=== PATIENT | male | born 1980 | race Hispanic/Latino ===

== ENCOUNTER 2019-02-28 11:19 | Emergency (ER) | payer SELFPAY ==
[2019-02-28 11:57] LABS: BASOPHILS % (AUTO) 0.7 % (0.0-5.0); HEMATOCRIT 44.3 % (42-54); LYMPHOCYTES % (AUTO) 21.6 % (21.0-51.0); MEAN CORPUSCULAR HEMOGLOBIN 30.6 pg (27.0-33.0); MEAN CORPUSCULAR HGB CONC 34.1 g/dL (32.0-36.0); MEAN CORPUSCULAR VOLUME 89.8 fL (79-99); MONOCYTES % (AUTO) 16.4 % (3.0-13.0); NEUTROPHILS % (AUTO) 59.3 % (40.0-77.0); PLATELET COUNT (AUTO) 237 K/uL (130-400); RED BLOOD CELL COUNT(AUTO) 4.93 MIL/uL (4.50-6.20); RED CELL DISTRIBUTION WIDTH 13.1 % (11.0-15.5); WHITE BLOOD COUNT (AUTO) 9.2 K/uL (4.8-10.8)
[2019-02-28 12:03] LABS: APPEARANCE,URINE Clear (CLEAR); BILIRUBIN,URINE Negative (NEGATIVE); COLOR,URINE Yellow (YELLOW); GLUCOSE, URINE (UA) Negative (NEGATIVE); KETONES,URINE Negative (NEGATIVE); LEUKOCYTE ESTERASE ,URINE Trace (NEGATIVE); NITRATE,URINE Negative (NEGATIVE); OCCULT BLOOD,URINE Negative (NEGATIVE); PROTEIN,URINE Negative (NEGATIVE)
[2019-02-28 12:05] LABS: CREATININE 0.8 mg/dL (0.5-1.5)
[2019-02-28 12:09] LABS: ALBUMIN 3.1 g/dL (3.5-5.0); BILIRUBIN,TOTAL 0.2 mg/dL (0.2-1.0); TOTAL PROTEIN, SERUM 6.9 g/dL (6.0-8.3)
[2019-02-28 12:14] LABS: RBC,URINE 0-1 /HPF (0-1)
[2019-02-28 12:15] LABS: BACTERIA,URINE Few /HPF (None Seen); SQUAMOUS EPITHELIAL CELL,UR 0-2 /HPF (0-2)
[2019-02-28 13:36] LABS: OCCULT BLOOD STOOL SINGLE ONLY POSITIVE (NEGATIVE)
== END 2019-02-28 14:23 | disposition home or self-care (01) ==
LOC: EDH 11:19
DX: K52.9 Noninfective gastroenteritis and colitis, unspecified (principal); F41.9 Anxiety disorder, unspecified; F32.9 Major depressive disorder, single episode, unspecified; Z72.0 Tobacco use
CPT/HCPCS: 36415; 74176; 80053; 81001; 82270; 83690; 85025; 87046; 87324

== ENCOUNTER 2022-10-09 13:10 | Emergency (ER) | payer OTHER ==
[~2022-10-09] VITALS: Ht 180.3 cm; Wt 106.6 kg
[2022-10-09 13:23] VITALS: BP 113/79
[2022-10-09 13:59] LABS: BASOPHILS % (AUTO) 0.4 % (0.0-5.0); EOSINOPHILS % (AUTO) 0.4 % (0.0-8.0); HEMATOCRIT 41.6 % (42-54); LYMPHOCYTES % (AUTO) 8.2 % (21.0-51.0); MEAN CORPUSCULAR HEMOGLOBIN 29.9 pg (27.0-33.0); MEAN CORPUSCULAR HGB CONC 34.1 g/dL (32.0-36.0); MEAN CORPUSCULAR VOLUME 87.6 fL (79-99); MONOCYTES % (AUTO) 12.8 % (3.0-13.0); NEUTROPHILS % (AUTO) 77.5 % (40.0-77.0); PLATELET COUNT (AUTO) 259 K/uL (130-400); RED BLOOD CELL COUNT(AUTO) 4.75 MIL/uL (4.50-6.20); RED CELL DISTRIBUTION WIDTH 12.4 % (11.0-15.5); WHITE BLOOD COUNT (AUTO) 18.2 K/uL (4.8-10.8)
[2022-10-09] MEDS ORDERED: IBUPROFEN 800 MG TAB PO ONE (14:00)
[2022-10-09 14:06] LABS: POTASSIUM 3.3 mmol/L (3.5-5.1)
[2022-10-09] MEDS ORDERED: CEPH500B PO (14:08)
[2022-10-09 14:10] LABS: ALBUMIN 3.6 g/dL (3.5-5.0); TOTAL PROTEIN, SERUM 7.1 g/dL (6.0-8.3)
[2022-10-09] MEDS ORDERED: POTASSIUM BICARB/CIT AC 25 MEQ TABLET.EFF PO ONE (14:30)
== END 2022-10-09 15:51 | disposition home or self-care (01) ==
LOC: EDH 13:10
DX: L02.412 Cutaneous abscess of left axilla (principal)
CPT/HCPCS: 10060; 36415; 76882; 80053; 85025

== ENCOUNTER 2022-10-11 16:34 | Emergency (ER) | payer OTHER ==
[~2022-10-11] VITALS: Ht 177.8 cm; Wt 104.3 kg
[~2022-10-11 16:34] MED LIST: CEPH500B PO
[2022-10-11 17:09] VITALS: BP 125/65
[2022-10-11] MEDS ORDERED: CLINDAMYCIN IVPB 600MG/50ML 50 ML IV SCH (17:30)
[2022-10-11] MEDS ORDERED: KETOROLAC 15MG/ML VIAL (15MG/ML) IV ONE (17:30)
[2022-10-11] MEDS ORDERED: KETO10TA2 PO (17:46)
[2022-10-11] MEDS ORDERED: CLIN-141 PO (17:46)
== END 2022-10-11 18:02 | disposition home or self-care (01) ==
LOC: EDH 16:34
DX: L03.112 Cellulitis of left axilla (principal)
CPT/HCPCS: 99284; 96365; 96374; J1885; J3490